=== PATIENT | male | born 1985 | race Two or more races ===

== ENCOUNTER 2021-05-02 21:28 | Emergency (ER) | payer MEDICAID, OTHER ==
[~2021-05-02] VITALS: Ht 172.7 cm; Wt 88.5 kg
[2021-05-02 21:28] VITALS: BP 147/98
== END 2021-05-02 23:28 | disposition home or self-care (01) ==
LOC: ER 21:41
DX: S63.501A Unspecified sprain of right wrist, initial encounter (principal); V80.010A Animal-rider injured by fall from or being thrown from horse in noncollision accident, initial encounter; Y93.89 Activity, other specified; Y92.89 Other specified places as the place of occurrence of the external cause; Y99.8 Other external cause status
CPT/HCPCS: 29125; 73110

== ENCOUNTER 2021-05-07 23:40 | Emergency (ER) | payer MEDICAID ==
[~2021-05-07] VITALS: Ht 172.7 cm; Wt 88.5 kg
[2021-05-08] MEDS ORDERED: SODIUM CHLORIDE 0.9% 1,000 ML IV ONE (01:00)
[2021-05-08] MEDS ORDERED: levETIRAcetam 500 MG/5ML INJ IV ONE (01:07)
[2021-05-08 01:42] LABS: Eosinophils # (auto) 0 10 ^3/uL (0-0.8); Eosinophils % (auto) 0.2 % (0.0-7.0); Mean Corpuscular Hemoglobin 33.5 pg (28.0-32.0); White Blood Cell 8.3 10^3/uL (4.4-10.8)
[2021-05-08 01:45] LABS: Basophils # (auto) 0 10 ^3/uL (0-0.2); Basophils % (auto) 0.1 % (0.0-2.0); Hematocrit 47.5 % (41.0-53.0); Hemoglobin 17.3 g/dL (13.5-17.5); Lymphocytes # (auto) 0.9 10 ^3/uL (0.4-5.4); Lymphocytes % (auto) 10.7 % (10.0-50.0); Mean Corpuscular Volume 91.7 fL (80.0-100.0); Monocytes # (auto) 0.5 10 ^3/uL (0-1.3); Monocytes % (auto) 6.3 % (0.0-12.0); Neutrophils # (auto) 6.8 10 ^3/uL (1.6-8.6); Neutrophils % (auto) 82.7 % (37.0-80.0); Nucleated Red Blood Cells % 0.1 %; Red Blood Cells 5.18 10^6/uL (4.5-5.90); Red Cell Distribution Width 12.6 % (11.8-14.3)
[2021-05-08 01:56] LABS: INR 0.99 (0.9-1.15)
[2021-05-08 01:57] LABS: Albumin 4.1 g/dL (3.4-5.0); Calcium 8.2 mg/dL (8.5-10.1); Magnesium 2.2 mg/dL (1.6-2.6); Potassium 3.5 mmol/L (3.5-5.1)
[2021-05-08 01:59] LABS: BUN/Creatinine Ratio 23.2; Lactic Acid w/Reflex 2.5 mmol/L (0.4-2.0)
[2021-05-08 02:01] LABS: Bilirubin, Total 0.6 mg/dL (0.2-1.0)
[2021-05-08 02:13] LABS: Mean Corpuscular Hgb Conc. 36.5 g/dL (32.0-36.0)
[2021-05-08 03:00] VITALS: BP 119/71
[2021-05-08] MEDS ORDERED: ACETAMINOPHEN 500 MG TAB PO ONE (03:00)
[2021-05-08 03:57] LABS: Urine Bacteria NONE SEEN /hpf (None Seen); Urine Blood Negative /uL (Negative); Urine Mucus FEW (None Seen); Urine Specific Gravity 1.027 (1.001-1.035); Urine WBC 4 /hpf (0 - 3)
== END 2021-05-08 04:40 | disposition home or self-care (01) ==
LOC: EDUNIT# 23:40 → EDBD 23:40 → ER 23:40
DX: G40.909 Epilepsy, unspecified, not intractable, without status epilepticus (principal); Z91.14 Patient's other noncompliance with medication regimen
CPT/HCPCS: 36415; 71045; 80053; 81001; 82550; 83605; 83735; 85025; 85049; 85610; 96365; 96366; 99284; J1953; J7060

== ENCOUNTER 2025-06-13 11:09 | Inpatient (IN) | payer MEDICAID ==
[~2025-06-13] VITALS: Ht 170.2 cm; Wt 84.4 kg
--- NOTE | 2025-06-13 11:21 | ED.PDOC ---
History of Present Illness HPI Comments 39-year-old male brought by paramedics because of a seizure episode witnessed by his son. Seizure was approximately 40 seconds. He had another seizure in route in the ambulance lasting about 20 seconds. He was given Versed in route. He did vomit 3 times prior to arrival to the ER. Patient does have a history of seizures for which she takes Keppra. He also has a history of hypertension diabetes. Blood sugar 193 on arrival. He is postictal. Unable to get any answers from the patient. Chief Complaint: Seizure Time Seen by MD: 11:11 Reviewed Notes: Nurses Notes, Medications, Allergies Allergies: Coded Allergies: NO KNOWN ALLERGIES (Unverified , 05/08/21) Information Source: Emergency Med Personnel Mode of Arrival: EMS Severity: Moderate Timing: Hours Duration: Since onset Past Medical History PAST MEDICAL HISTORY: DM, HTN, Seizures Surgical History: Denies all surgeries Family History Family History: Reviewed,noncontributory to illness Social History Smoker: Non-Smoker Alcohol: Denies ETOH Use Drugs: Denies Drug Use Lives In: Home Neurological: reports: seizure Unable to Obtain due to: Altered Mental Status Physical Exam General Appearance: Severe Distress HEENT: Normal ENT Inspection, Pharynx Normal, TMs Normal Neck: Full Range of Motion, Non-Tender, Normal, Normal Inspection Respiratory: Chest Non-Tender, Lungs Clear, No Accessory Muscle Use, No Respiratory Distress, Normal Breath Sounds Cardiovascular: No Edema, No JVD, No Murmur, No Gallop, Normal Peripheral Pulses, Regular Rate/Rhythm Breast Exam: Deferred Gastrointestinal: No Organomegaly, Non Tender, No Pulsatile Mass, Normal Bowel Sounds, Soft Genitalia: Deferred Pelvic: Deferred Rectal: Deferred Extremities: No calf tenderness, Normal capillary refill, Normal inspection, Normal range of motion, Non-tender, No pedal edema Musculoskeletal : Apperance: Normal Neurologic: Disoriented Cerebellar Function: NOT DONE Reflexes: NOT DONE Skin: Wounds (Tongue) Peripheral Pulses: 3+ Radial (R), 3+ Radial (L) Lymphatic: No Adenopathy Was a procedure done? Was a procedure done?: No Differential Dx Considerations may include: Seizure Electrolyte imbalance X-Ray, Labs, Meds, VS Vital Signs Date Time Temp Pulse Resp B/P (MAP) Pulse Ox O2 Delivery O2 Flow Rate FiO2 06/13/25 11:24 96.8 115 17 128/99 (109) 100 96.8 06/13/25 11:12 98.9 117 16 148/75 97 98.9 Lab Test 06/13/25 11:28 Range/Units White Blood Count 9.3 4.4-10.8 10^3/uL Red Blood Count 5.82 4.5-5.90 10^6/uL Hemoglobin 19.1 H 13.5-17.5 g/dL Hematocrit 54.3 H 41.0-53.0 % Mean Corpuscular Volume 93.3 80.0-100.0 fL Mean Corpuscular Hemoglobin 32.7 H 28.0-32.0 pg Mean Corpuscular Hemoglobin Concent 35.1 32.0-36.0 g/dL Red Cell Distribution Width 12.6 11.8-14.3 % Platelet Count 220 140-450 10^3/uL Mean Platelet Volume 6.6 L 6.9-10.8 fL Neutrophils (%) (Auto) 72.9 37.0-80.0 % Lymphocytes (%) (Auto) 22.6 10.0-50.0 % Monocytes (%) (Auto) 4.0 0.0-12.0 % Eosinophils (%) (Auto) 0.1 0.0-7.0 % Basophils (%) (Auto) 0.4 0.0-2.0 % Neutrophils # (Auto) 6.8 1.6-8.6 10 ^3/uL Lymphocytes # (Auto) 2.1 0.4-5.4 10 ^3/uL Monocytes # (Auto) 0.4 0-1.3 10 ^3/uL Eosinophils # (Auto) 0 0-0.8 10 ^3/uL Basophils # (Auto) 0 0-0.2 10 ^3/uL Nucleated Red Blood Cells 0.7 % Sodium Level 140 136-145 mmol/L Potassium Level 3.5 3.5-5.1 mmol/L Chloride Level 104 98-107 mmol/L Carbon Dioxide Level 17 L 20-31 mmol/L Anion Gap 19 H 5-15 Blood Urea Nitrogen 12 9-23 mg/dL Creatinine 1.02 0.700-1.30 mg/dL Glomerular Filtration Rate Calc 95 >90 mL/min BUN/Creatinine Ratio 11.8 10.0-20.0 Serum Glucose 210 H 74-106 mg/dL Calcium Level 9.1 8.7-10.4 mg/dL Current Medications Medications (Trade) Dose Ordered Sig/Daniele Route Start Time Stop Time Status Last Admin Sodium Chloride 1,000 ml @ 1,000 mls/hr Q1H ONCE IV 06/13/25 11:30 06/13/25 12:29 DC 06/13/25 11:54 Sodium Chloride 1,000 ml @ 150 mls/hr Q6H40M ONCE IV 06/13/25 11:30 06/13/25 18:09 06/13/25 11:54 Lorazepam (Ativan Inj) 1 mg ONCE ONCE IV 06/13/25 11:30 06/13/25 11:31 DC 06/13/25 11:54 Levetiracetam 100 ml @ 400 mls/hr ONCE ONCE IV 06/13/25 11:30 06/13/25 11:44 DC 06/13/25 11:54 Time of 1ST Reevaluation: 11:20 Reevaluation 1ST: Unchanged Patient Education/Counseling: Other (Altered) Family Education/Counseling: Other (Son knows explained to about his condition) SEPSIS Sepsis Screen Physician Orders Chest Portable (06/13/25 11:21) Urinalysis (06/13/25 11:21) Sodium Chloride 0.9% (06/13/25 11:30) Head Without Contrast (06/13/25 11:21) Vital Signs Date Time Temp Pulse Resp B/P (MAP) Pulse Ox O2 Delivery O2 Flow Rate FiO2 06/13/25 11:24 96.8 115 17 128/99 (109) 100 96.8 06/13/25 11:12 98.9 117 16 148/75 97 98.9 Laboratory Tests Test 06/13/25 11:28 White Blood Count 9.3 10^3/uL (4.4-10.8) Medications Medications Dose Ordered Sig/Daniele Route Start Time Stop Time Status Last Admin Dose Admin Levetiracetam 100 ml @ 400 mls/hr ONCE ONCE IV 06/13/25 11:30 06/13/25 11:44 DC 06/13/25 11:54 Lorazepam 1 mg ONCE ONCE IV 06/13/25 11:30 06/13/25 11:31 DC 06/13/25 11:54 Sodium Chloride 1,000 ml @ 150 mls/hr Q6H40M ONCE IV 06/13/25 11:30 06/13/25 18:09 06/13/25 11:54 Sodium Chloride 1,000 ml @ 1,000 mls/hr Q1H ONCE IV 06/13/25 11:30 06/13/25 12:29 DC 06/13/25 11:54 Departure 1 Departure Time of Disposition: 11:20 Impression: Primary Impression: Metabolic encephalopathy Additional Impression: Seizure disorder Disposition: ADMITTED INPATIENT Admit to: Med Surg Condition: Guarded Critical Care Note Critical Care Time?: Yes (90 min-critical care time only) Stability Stability form required: No Heart Score Heart Score: Heart Score Response (Comments) Value History N/A 0 EKG N/A 0 Age N/A 0 Risk Factors N/A 0 Troponin N/A 0 Total 0 OMEGA LONG MD Jun 13, 2025 11:21
[2025-06-13 11:45] LABS: Hematocrit 54.3 % (41.0-53.0); Hemoglobin 19.1 g/dL (13.5-17.5); Mean Corpuscular Hemoglobin 32.7 pg (28.0-32.0); Mean Corpuscular Volume 93.3 fL (80.0-100.0); Nucleated Red Blood Cells % 0.7 %
[2025-06-13] MEDS: SODIUM CHLORIDE 0.9% 1,000 ML IV ONE ×2 (11:54)
[2025-06-13] MEDS: LORazepam 2MG/ML-1ML VIAL IV ONE (11:54)
[2025-06-13] MEDS: levETIRAcetam 1000 mg/100ml 100 ML IV ONE (11:54)
[2025-06-13 11:55] LABS: Chloride 104 mmol/L (98-107); Potassium 3.5 mmol/L (3.5-5.1); Sodium 140 mmol/L (136-145)
[2025-06-13 11:56] LABS: Anion Gap 19 (5-15); Calcium 9.1 mg/dL (8.7-10.4)
[2025-06-13 12:01] LABS: BUN/Creatinine Ratio 11.8 (10.0-20.0); Blood Urea Nitrogen 12 mg/dL (9-23); Carbon Dioxide 17 mmol/L (20-31); Glucose 210 mg/dL (74-106)
--- NOTE | 2025-06-13 12:17 | DVH ---
CHEST RADIOGRAPH Indication: sob Technique: XY CHEST PORTABLE Comparison: None FINDINGS: The cardiac silhouette is unremarkable. The lungs demonstrate no pulmonary airspace consolidation. Th e pulmonary vasculature is unremarkable. There is no pleural effusion. There is no pneumothorax. IMPRESSION: No pulmonary airspace consolidation.
--- NOTE | 2025-06-13 12:17 | DVH ---
EXAM: CT HEAD WITHOUT CONTRAST INDICATION: altered TECHNIQUE: CT of the head without intravenous contrast. Radiation Dose : 1. Head: CT Dose: CTDI volume is 63.11 mGy. Dose-length product is 1.61 mGy*cm The dose indicators for CT are the volume Computed Tomography (CT) Dose Index (CTDIvol) and the Dose Length Product (DLP), and are measured in units of mGy and mGy-cm, respectively. These indicators are not patient dose, but values generated from the CT scanner acquisition factors. The report includes radiation exposure data for exposures received during this examination. COMPARISON: None FINDINGS: There is no evidence of acute intracranial hemorrhage, extra-axial collection, mass effect, midline s hift, herniation or hydrocephalus. The ventricles, sulci and cisterns are age appropriate. The price-white differentiation is intact. Patchy periventricular and subcortical white matter hypoattenuation is nonspecific but may be related to small vessel ischemic disease. The visualized paranasal sinuses and mastoid air cells are clear. The surrounding soft tissues and osseous structures are unremarkable. IMPRESSION: 1. No acute intracranial abnormality. Radiation optimization: All CT scans at this facility use at least one of these dose optimization delvis hniques: automated exposure control mA and/or kV adjustment per patient size (includes targeted exam s where dose is matched to clinical indication) or iterative reconstruction.
[2025-06-13 13:14] VITALS: PULSE 103; RESP 16; O2SAT 95
[2025-06-13] MEDS ORDERED: DEXTROSE (50%) 50ML SYRG IV PRN (19:30)
[2025-06-13] MEDS ORDERED: ONDANSETRON HCL 4 MG/2 ML VIAL IV PRN (19:30)
[2025-06-13] MEDS: ACETAMINOPHEN 325 MG TAB PO PRN (20:24)
[2025-06-13 21:20] VITALS: PULSE 86; RESP 12; O2SAT 96
[2025-06-13] MEDS ORDERED: levETIRAcetam 500 MG TAB PO SCH (22:00)
[2025-06-13 23:00] VITALS: BP_SYST 84; PULSE 87; RESP 19; TEMP 97.9; O2SAT 93
--- NOTE | 2025-06-13 23:05 | DVHHP2 ---
History of Present Illness Reason for Visit: Seizure History of Present Illness 39-year-old male presents for evaluation of seizure. Patient had a witnessed seizure lasting approximately 30 seconds witnessed by his son. Patient reports driving today to see a job, the last thing he remembers is pulling to the side of the road and waking up in the hospital. No oral trauma or incontinence. Patient reports being compliant with his antiseizure medications and has followups with Neurology in [place]. Past Medical History Hypertension, diabetes mellitus, seizures Past Surgical History Denies Family History Noncontributory Smoke: No ALCOHOL: none Drugs: None Lives: with Family Review of Systems Review of Systems Review of systems are currently negative otherwise addressed in HPI. Allergies: Coded Allergies: NO KNOWN ALLERGIES (Unverified , 05/08/21) Medications Current Medications Medications Dose Ordered Sig/Daniele Route Start Time Stop Time Status Last Admin Dose Admin Levetiracetam 500 mg BID PO 06/13/25 22:00 Phenytoin Sodium 200 mg BID PO 06/13/25 22:00 Diagnostic Test (Pha) 1 strip ACHS 06/13/25 22:00 Insulin Human Regular ACHS SC 06/13/25 22:00 Dextrose 50 ml UD PRN IV 06/13/25 19:30 Ondansetron HCl 4 mg Q4HP PRN IV 06/13/25 19:30 Acetaminophen 650 mg Q6HP PRN PO 06/13/25 19:30 06/13/25 20:24 650 MG Exam Vital Signs Vital Signs Date Time Temp Pulse Resp B/P (MAP) Pulse Ox O2 Delivery O2 Flow Rate FiO2 06/13/25 21:20 86 12 96 Room Air* 0 21 06/13/25 20:00 97.9 129/82 (98) 97.9 Exam Gen: 39-year-old male in mild distress Skin: Warm, dry, normal color and texture, no rash. HEENT: Normocephalic atraumatic, mucous membranes moist and pink. Neck: Cervical and supraclavicular nodes normal without enlargement, trachea is midline, thyroid gland is normal without masses. Pulmonary: Clear to auscultation and percussion bilaterally. Cardiac: Regular rate and rhythm. No murmur Abdomen: Soft, nontender, nondistended, bowel sounds present all 4 quadrants, no guarding, no rigidity, no organomegaly. Extremities: No cyanosis, clubbing, no edema Neuro: Cranial nerves II through XII grossly intact, lethargic, no focal motor d eficits Labs/Xrays ORDERING PHYSICIAN: OMEGA LONG MD PROCEDURE(s): CXRP - CHEST PORTABLE REASON: sob ORDER NUMBER(s): [id number], ACCESSION NUMBER(s): [id number] CHEST RADIOGRAPH Indication: sob Technique: XY CHEST PORTABLE Comparison: None FINDINGS: The cardiac silhouette is unremarkable. The lungs demonstrate no pulmonary airspace consolidation. The pulmonary vasculature is unremarkable. There is no pleural effusion. There is no pneumothorax. IMPRESSION: No pulmonary airspace consolidation. RING PHYSICIAN: OMEGA LONG MD PROCEDURE(s): HWOCT - HEAD WITHOUT CONTRAST REASON: altered ORDER NUMBER(s): [id number], ACCESSION NUMBER(s): [id number] EXAM: CT HEAD WITHOUT CONTRAST INDICATION: altered TECHNIQUE: CT of the head without intravenous contrast. Radiation Dose : 1. Head: CT Dose: CTDI volume is 63.11 mGy. Dose-length product is 1.61 mGy*cm The dose indicators for CT are the volume Computed Tomography (CT) Dose Index (CTDIvol) and the Dose Length Product (DLP), and are measured in units of mGy and mGy-cm, respectively. These indicators are not patient dose, but values generated from the CT scanner acquisition factors. The report includes radiation exposure data for exposures received during this examination. COMPARISON: None FINDINGS: There is no evidence of acute intracranial hemorrhage, extra-axial collection, mass effect, midline shift, herniation or hydrocephalus. The ventricles, sulci and cisterns are age appropriate. The price-white differentiation is intact. Patchy periventricular and subcortical white matter hypoattenuation is nonspecific but may be related to small vessel ischemic disease. The visualized paranasal sinuses and mastoid air cells are clear. The surrounding soft tissues and osseous structures are unremarkable. IMPRESSION: 1. No acute intracranial abnormality. Radiation optimization: All CT scans at this facility use at least one of these dose optimization techniques: automated exposure control mA and/or kV adjustment per patient size (includes targeted exams where dose is matched to clinical indication) or iterative reconstruction. Labs Test 06/13/25 19:52 06/13/25 11:28 Range/Units Phenytoin (Dilantin) Level < 2.0 L 10-20 ug/mL White Blood Count 9.3 4.4-10.8 10^3/uL Red Blood Count 5.82 4.5-5.90 10^6/uL Hemoglobin 19.1 H 13.5-17.5 g/dL Hematocrit 54.3 H 41.0-53.0 % Mean Corpuscular Volume 93.3 80.0-100.0 fL Mean Corpuscular Hemoglobin 32.7 H 28.0-32.0 pg Mean Corpuscular Hemoglobin Concent 35.1 32.0-36.0 g/dL Red Cell Distribution Width 12.6 11.8-14.3 % Platelet Count 220 140-450 10^3/uL Mean Platelet Volume 6.6 L 6.9-10.8 fL Neutrophils (%) (Auto) 72.9 37.0-80.0 % Lymphocytes (%) (Auto) 22.6 10.0-50.0 % Monocytes (%) (Auto) 4.0 0.0-12.0 % Eosinophils (%) (Auto) 0.1 0.0-7.0 % Basophils (%) (Auto) 0.4 0.0-2.0 % Neutrophils # (Auto) 6.8 1.6-8.6 10 ^3/uL Lymphocytes # (Auto) 2.1 0.4-5.4 10 ^3/uL Monocytes # (Auto) 0.4 0-1.3 10 ^3/uL Eosinophils # (Auto) 0 0-0.8 10 ^3/uL Basophils # (Auto) 0 0-0.2 10 ^3/uL Nucleated Red Blood Cells 0.7 % Sodium Level 140 136-145 mmol/L Potassium Level 3.5 3.5-5.1 mmol/L Chloride Level 104 98-107 mmol/L Carbon Dioxide Level 17 L 20-31 mmol/L Anion Gap 19 H 5-15 Blood Urea Nitrogen 12 9-23 mg/dL Creatinine 1.02 0.700-1.30 mg/dL Glomerular Filtration Rate Calc 95 >90 mL/min BUN/Creatinine Ratio 11.8 10.0-20.0 Serum Glucose 210 H 74-106 mg/dL Calcium Level 9.1 8.7-10.4 mg/dL SEPSIS Sepsis Screen Date sepsis recognized/suspect: Jun 13, 2025 Time Sepsis recognized/suspect: 1315 Recent Procedure: No On Antibiotic Therapy: No Respiratory Rate >20: No Heart Rate >90: No Temp<36 C (96.8 F) or >38.3 C: No SBP <90 or MAP <65 mmHG: No New Acute Mental Status Change: No Is the patient on CPAP, BIPAP,: No Physician Orders Seizure Precautions In Place (06/13/25 19:20) * Neurology Consult (06/13/25 19:20) Levetiracetam Tablet (Keppra Tablet) (06/13/25 22:00) Phenytoin Capsule (Dilantin Capsule) (06/13/25 22:00) Basic Metabolic Panel (06/14/25 04:00) Consistent Carb(Ccho)Diabetes (06/14/25 Breakfast) Glucose Blood (Accu-Chek Comfort Curve T (06/13/25 22:00) Insulin R (Human) (Insulin R) (06/13/25 22:00) Dextrose 50% Syringe (06/13/25 19:30) Ondansetron Hcl (Zofran) (06/13/25 19:30) Condition: Stable (06/13/25 19:20) Acetaminophen Tablet (Tylenol Tablet) (06/13/25 19:30) Bedrest With Bathroom Privileg (06/13/25 19:20) Admit (06/13/25 19:50) Brain Head Wo Contrast (06/13/25 22:58) Vital Signs Date Time Temp Pulse Resp B/P (MAP) Pulse Ox O2 Delivery O2 Flow Rate FiO2 06/13/25 21:20 86 12 96 Room Air* 0 21 06/13/25 20:00 97.9 91 17 129/82 (98) 99 97.9 06/13/25 16:00 96.8 94 17 109/72 (84) 100 96.8 Laboratory Tests Test 06/13/25 11:28 White Blood Count 9.3 10^3/uL (4.4-10.8) Medications Medications Dose Ordered Sig/Daniele Route Start Time Stop Time Status Last Admin Dose Admin Acetaminophen 650 mg Q6HP PRN PO 06/13/25 19:30 06/13/25 20:24 650 MG Levetiracetam 100 ml @ 400 mls/hr ONCE ONCE IV 06/13/25 11:30 06/13/25 11:44 DC 06/13/25 11:54 400 MLS/HR Lorazepam 1 mg ONCE ONCE IV 06/13/25 11:30 06/13/25 11:31 DC 06/13/25 11:54 1 MG Sodium Chloride 1,000 ml @ 150 mls/hr Q6H40M ONCE IV 06/13/25 11:30 06/13/25 18:09 DC 06/13/25 11:54 150 MLS/HR Sodium Chloride 1,000 ml @ 1,000 mls/hr Q1H ONCE IV 06/13/25 11:30 06/13/25 12:29 DC 06/13/25 11:54 1,000 MLS/HR Assessment/Plan Assessment/Plan Assessment Breakthrough seizure Diabetes mellitus Hypertension Plan Admit the patient to [facility] to the hospitalist Nephrology consultation MRI of the brain pending Resume home medications Seizure precautions in place Continue treatment per orders. Plan discussed with: Other My Orders Orders - ARI BROOKS AGALM Procedure Category Date Status Time Seizure Precautions LADI 06/13/[address] 19:20 * Neurology Consult CONS 06/13/25 Transmitted 19:20 Levetiracetam Tablet PHA 06/13/25 In Process (Keppra Tablet) 22:00 Phenytoin Capsule PHA 06/13/25 In Process (Dilantin Capsule) 22:00 Basic Metabolic Panel LAB 06/14/25 Verified 04:00 Consistent DIET 06/14/25 Transmitted Carb(Ccho)Diabetes Breakfast Glucose Blood PHA 06/13/25 In Process (Accu-Chek Comfort 22:00 Insulin R (Human) PHA 06/13/25 In Process (Insulin R) 22:00 Dextrose 50% Syringe PHA 06/13/25 In Process 19:30 Ondansetron Hcl PHA 06/13/25 In Process (Zofran) 19:30 Condition: Stable LADI 06/13/25 In Process 19:20 Acetaminophen Tablet PHA 06/13/25 In Process (Tylenol Tablet) 19:30 Bedrest With Bathroom LADI 06/13/25 In Process Privileg 19:20 Admit ADMIT 06/13/25 Transmitted 19:50 Brain Head Wo Contrast MRI 06/13/25 Logged 22:58 Date of Service: Jun 13, 2025 Billing Provider: ARI BROOKS Common Visit Codes: [id number] INP/OBS CARE (HIGH) ARI BROOKS Jun 13, 2025 23:05
[2025-06-13] MEDS: PHENYTOIN SODIUM 100 MG CAP PO SCH (23:24)
[2025-06-13] MEDS: InsuLIN REG 1unit/0.01ml Soln (100units/ml) SC SCH (23:24)
[2025-06-13] MEDS: ACCU-CHEK COMFORT CURVE STRIP VI SCH (23:25)
[2025-06-14] VITALS (8 sets, daily range): BP systolic 108–129; BP diastolic 69–85; PULSE 70–82; RESP 13–18; TEMP 98.3–98.5; O2SAT 92–96
[2025-06-14] MEDS: levETIRAcetam 500 MG TAB PO SCH (00:35)
[2025-06-14 06:26] LABS: Chloride 104 mmol/L (98-107); Potassium 3.9 mmol/L (3.5-5.1); Sodium 141 mmol/L (136-145)
[2025-06-14 06:27] LABS: Anion Gap 9 (5-15); Calcium 8.8 mg/dL (8.7-10.4); Carbon Dioxide 28 mmol/L (20-31)
[2025-06-14 06:33] LABS: Glucose 99 mg/dL (74-106)
[2025-06-14 06:47] LABS: BUN/Creatinine Ratio 12.3 (10.0-20.0)
[2025-06-14 06:48] LABS: Blood Urea Nitrogen 9 mg/dL (9-23)
[2025-06-14 08:28] LABS: Urine Protein, UAD Negative (Negative)
--- NOTE | 2025-06-14 09:22 | DVHINCON2 ---
Date of service: Jun 14, 2025 Referring Physician Lopez Reason for Consultation Breakthrough seizure History of Present Illness Mr. Alberts is a 39 years old right-handed gentleman with a history of hypertension, diabetes, obesity, he was brought to the [facility] on 06/13/2025 with a chief complaint of seizure activity. At this time, he is alert and fully oriented, he and his provided the following history On 06/13/2025, when he was driving, he developed nausea and other abdominal discomfort, he pulls over and then next memory was waking up confused, then the next time he woke up was in the [facility] ER, with normal mentation and a small biting to the right tongue. Presumably he had a convulsive seizure. The last time he had seizure was in 11/2024 He has seizure disorder since age of 16, in that he has periodic event started with discomfort in the stump, nausea, and then followed by loss of consciousness, generalized shaking. He has seizures infrequently, the one before the 11/2024 was in 2019. He sees a neurologist, he is on Keppra ? mg daily (according to the record, 500 mg three tablets daily), Dilantin three capsule daily (according to our record, Dilantin capsule 100 capsule two capsules twice daily), and he reports good compliance He reports that he is allowed by his talked to drive, but I have advised against drive until he is cleared Dilantin, 06/13/2025: <2 Urinalysis, 06/13/2025, WBC: 4, urine leukocyte esterase: Negative WBC/HB/PLT/MCV HCT, 06/13/2025: 9.3/19.1/220/93.3/54.3 HCO3, 06/13/2025: 17, 06/14/2025: 28 CT head 06/13/2025: No acute intracranial abnormality Past Medical History Hypertension, diabetes, seizure Past Surgical History No surgeries Family History No major medical problems Social History He denies history of tobacco smoking, drug or alcohol abuse Allergies: Coded Allergies: NO KNOWN ALLERGIES (Unverified , 05/08/21) Current Medications Current Medications Medications (Trade) Dose Ordered Sig/Daniele Route PRN Reason Start Time Stop Time Status Last Admin Levetiracetam (Keppra Tablet) 500 mg BID PO 06/13/25 22:00 06/13/25 23:01 DC Phenytoin Sodium (Dilantin Capsule) 200 mg BID PO 06/13/25 22:00 06/13/25 23:24 Diagnostic Test (Pha) (Accu-Chek Comfort Curve T) 1 strip ACHS 06/13/25 22:00 06/14/25 06:18 Insulin Human Regular (InsuLIN R) ACHS SC 06/13/25 22:00 06/13/25 23:24 Dextrose 50 ml UD PRN IV Blood Sugar LESS THAN 60 06/13/25 19:30 Ondansetron HCl (Zofran) 4 mg Q4HP PRN IV NAUSEA / VOMITING 06/13/25 19:30 Acetaminophen (Tylenol Tablet) 650 mg Q6HP PRN PO PAIN SCALE 1-3 OR TEMP>100.4 06/13/25 19:30 06/13/25 20:24 Levetiracetam (Keppra Tablet) 1,500 mg DAILY PO 06/13/25 23:00 06/14/25 00:35 Folic Acid 1 mg DAILY PO 06/14/25 10:00 Review of Systems As above, the other systems are negative Vital Signs Vital Signs Date Time Temp Pulse Resp B/P (MAP) Pulse Ox O2 Delivery O2 Flow Rate FiO2 06/14/25 09:00 71 14 95 Room Air* 0 21 06/14/25 07:30 97.5 101/57 (72) 97.5 Physical Exam GENERAL EXAM: General: the patient is well developed and nourished. No acute distress. HEENT: Normocephalic, neck is supple, no carotid bruits. No mass. RESPIRATORY: Normal respiratory effort with symmetrical lung expansion. Lungs clear to auscultation. CARDIOVASCULAR: Regular rate and rhythm with no murmurs. S1, S2. ABDOMEN: Soft, nontender, normal bowel sound NEUROLOGICAL: MENTAL STATUS: Awake and alert. Oriented to person, place, time and general circumstances. Able to give personal history. SPEECH, LANGUAGE, HIGHER CORTICAL FUNCTION: no aphasia or dysathria. CRANIAL NERVES: #2: Intact visual shelton to confrontation. The optic discs were sharp. #3,4,6: Pupils are equal, round and reactive. EOMs full and conjugate. No nystagmus. #5: Facial sensation intact in all three divisions bilaterally. Mandibular strength intact. #7: Facial muscles symmetrical and strength intact. #8: Hearing grossly normal to voice. #9,10: Uvula and soft palate rise in the midline. Swallow and voice are normal. #11: Trapezius and sternomastoid strength intact bilaterally. #12: Tongue midline. No fasciculations or atrophy. SENSATION: Sensation to touch and pinprick is normal. MOTOR: Normal tone in the upper and lower extremity. Normal muscle bulk. No fasciculations. No abnormal movements or posturing. Muscle strength of the major groups in the upper extremities is 5/5. Muscle strength of the major groups in the lower extremities is 5/5. REFLEXES: Deep tendon reflexes are symmetrical. No pathological reflexes. CEREBELLAR/COORDINATION: Finger to nose and heel to waters are normal bilaterally. GAIT/STATION: deferred. Labs/Diagnostic Data Labs Test 06/14/25 06:02 06/14/25 05:43 06/13/25 19:52 06/13/25 11:28 Range/Units POC Glucose 109 H 70-106 mg/dl Sodium Level 141 136-145 mmol/L Potassium Level 3.9 3.5-5.1 mmol/L Chloride Level 104 98-107 mmol/L Carbon Dioxide Level 28 # 20-31 mmol/L Anion Gap 9 5-15 Blood Urea Nitrogen 9 9-23 mg/dL Creatinine 0.73 0.700-1.30 mg/dL Glomerular Filtration Rate Calc 117 >90 mL/min BUN/Creatinine Ratio 12.3 10.0-20.0 Serum Glucose 99 # 74-106 mg/dL Calcium Level 8.8 8.7-10.4 mg/dL Phenytoin (Dilantin) Level < 2.0 L 10-20 ug/mL White Blood Count 9.3 4.4-10.8 10^3/uL Red Blood Count 5.82 4.5-5.90 10^6/uL Hemoglobin 19.1 H 13.5-17.5 g/dL Hematocrit 54.3 H 41.0-53.0 % Mean Corpuscular Volume 93.3 80.0-100.0 fL Mean Corpuscular Hemoglobin 32.7 H 28.0-32.0 pg Mean Corpuscular Hemoglobin Concent 35.1 32.0-36.0 g/dL Red Cell Distribution Width 12.6 11.8-14.3 % Platelet Count 220 140-450 10^3/uL Mean Platelet Volume 6.6 L 6.9-10.8 fL Neutrophils (%) (Auto) 72.9 37.0-80.0 % Lymphocytes (%) (Auto) 22.6 10.0-50.0 % Monocytes (%) (Auto) 4.0 0.0-12.0 % Eosinophils (%) (Auto) 0.1 0.0-7.0 % Basophils (%) (Auto) 0.4 0.0-2.0 % Neutrophils # (Auto) 6.8 1.6-8.6 10 ^3/uL Lymphocytes # (Auto) 2.1 0.4-5.4 10 ^3/uL Monocytes # (Auto) 0.4 0-1.3 10 ^3/uL Eosinophils # (Auto) 0 0-0.8 10 ^3/uL Basophils # (Auto) 0 0-0.2 10 ^3/uL Nucleated Red Blood Cells 0.7 % Test 06/13/25 08:08 Range/Units Urine Color Yellow Yellow Urine Clarity Clear Clear Urine pH 6.0 5.0-9.0 Urine Specific [place] 1.022 1.001-1.035 Urine Protein Negative Negative Urine Ketones Negative Negative Urine Blood Negative Negative /uL Urine Nitrite Negative Negative Urine Bilirubin Negative Negative Urine Urobilinogen Normal Negative mg/dL Urine Leukocyte Esterase Negative Negative /uL Urine RBC 1 0 - 3 /hpf Urine Microscopic WBC 4 H 0-3 /HPF Urine Squamous Epithelial Cells Few <5 /hpf Urine Bacteria None seen None Seen /hpf Urine Mucus Few None Seen Urine Glucose Normal Normal mg/dL Assessment Grand mal seizure On therapeutic Dilantin level Poor compliance Plan/Recommendation Monitoring Supportive treatment Telemetry Dilantin level in the morning Dilantin 1000 mg IV x1 Dilantin 200 mg b.i.d. Keppra 750 mg b.i.d. Ativan for seizure breakthrough Triggers of seizures discussed, especially poor compliance, alcohol, sleep deprivation He has been advised not drive and he is cleared DMV report in the chart Follow up with his doctor and neurologist MICK on discharge Prognosis: Poor This medical document was created using an electronic medical record system with [employer] system. Although this document has been carefully reviewed, there may still be some phonetic and typographical errors. These areas are purely typographical due to imperfections of the software programs, and do not reflect any compromise in the patient's medical care. Plan discussed with: Patient, Spouse, Other KALEB MCCRACKEN MD Jun 14, 2025 09:22
[2025-06-14] MEDS: FOLIC ACID 1 MG TAB PO SCH (10:45)
[2025-06-14] MEDS: PHENYTOIN IV DILANTIN 1,000 MG in SODIUM CHL 0.9% 250 ML IV ONE (11:46)
--- NOTE | 2025-06-14 14:18 | DVH ---
EXAMINATION: MRI BRAIN HEAD WO CONTRAST INDICATION: Breakthrough seizure COMPARISON: CT HEAD WITHOUT CONTRAST on DOS: 06/13/25 TECHNIQUE: Multiplanar, multisequence magnetic resonance imaging of the brain was performed without the use of i ntravenous contrast. FINDINGS: Normal brain volume. There are nonspecific few scattered supratentorial T2/FLAIR hyperintense foci. No hemorrhages, masses, mass effect, midline shift, herniation or cytotoxic edema following large vas cular territory. No intra-axial or extra-axial fluid collections. No evidence of hydrocephalus. The b yesenia cisterns are patent. The vascular flow voids are maintained. Left cerebellar developmental venou s anomaly. The pituitary gland, sella parasellar regions unremarkable. The cerebellar tonsils are normal positio n. The cerebellum is unremarkable. The orbits and globes unremarkable. Mild mucoperiosteal thickening of the ethmoid air cells and maxil rebecca sinuses with left-sided maxillary tooth periapical cyst. Bilateral mastoids are clear. There are No worrisome calvarial lesions. IMPRESSION: No evidence of acute intracranial abnormalities. Left cerebellar developmental venous anomaly. Few scattered supratentorial T2/FLAIR hyperintense foci which may represent chronic small-vessel isch emic changes versus changes associated with migrainous state with demyelination thought less likely.
[2025-06-14] MEDS ORDERED: KEP500T PO (15:49)
[2025-06-14] MEDS ORDERED: PHEN1CAP38 PO (15:49)
--- NOTE | 2025-06-14 18:42 | DVHDSRES ---
Discharge Summary Date of Admission Resident Creating Document: BELKIS CHAN RESIDENT Jun 13, 2025 at 19:50 Date of Discharge: Jun 14, 2025 Admitting Diagnosis breakthrough seizure Labs/Diagnostic Data: Laboratory Results Test 06/14/25 06:02 06/14/25 05:43 06/13/25 19:52 06/13/25 11:28 POC Glucose 109 mg/dl (70-106) Sodium Level 141 mmol/L (136-145) Potassium Level 3.9 mmol/L (3.5-5.1) Chloride Level 104 mmol/L (98-107) Carbon Dioxide Level 28 mmol/L (20-31) Anion Gap 9 (5-15) Blood Urea Nitrogen 9 mg/dL (9-23) Creatinine 0.73 mg/dL (0.700-1.30) Glomerular Filtration Rate Calc 117 mL/min (>90) BUN/Creatinine Ratio 12.3 (10.0-20.0) Serum Glucose 99 mg/dL (74-106) Calcium Level 8.8 mg/dL (8.7-10.4) Phenytoin (Dilantin) Level < 2.0 ug/mL (10-20) White Blood Count 9.3 10^3/uL (4.4-10.8) Red Blood Count 5.82 10^6/uL (4.5-5.90) Hemoglobin 19.1 g/dL (13.5-17.5) Hematocrit 54.3 % (41.0-53.0) Mean Corpuscular Volume 93.3 fL (80.0-100.0) Mean Corpuscular Hemoglobin 32.7 pg (28.0-32.0) Mean Corpuscular Hemoglobin Concent 35.1 g/dL (32.0-36.0) Red Cell Distribution Width 12.6 % (11.8-14.3) Platelet Count 220 10^3/uL (140-450) Mean Platelet Volume 6.6 fL (6.9-10.8) Neutrophils (%) (Auto) 72.9 % (37.0-80.0) Lymphocytes (%) (Auto) 22.6 % (10.0-50.0) Monocytes (%) (Auto) 4.0 % (0.0-12.0) Eosinophils (%) (Auto) 0.1 % (0.0-7.0) Basophils (%) (Auto) 0.4 % (0.0-2.0) Neutrophils # (Auto) 6.8 10 ^3/uL (1.6-8.6) Lymphocytes # (Auto) 2.1 10 ^3/uL (0.4-5.4) Monocytes # (Auto) 0.4 10 ^3/uL (0-1.3) Eosinophils # (Auto) 0 10 ^3/uL (0-0.8) Basophils # (Auto) 0 10 ^3/uL (0-0.2) Nucleated Red Blood Cells 0.7 % Test 06/13/25 08:08 Urine Color Yellow (Yellow) Urine Clarity Clear (Clear) Urine pH 6.0 (5.0-9.0) Urine Specific [place] 1.022 (1.001-1.035) Urine Protein Negative (Negative) Urine Ketones Negative (Negative) Urine Blood Negative /uL (Negative) Urine Nitrite Negative (Negative) Urine Bilirubin Negative (Negative) Urine Urobilinogen Normal mg/dL (Negative) Urine Leukocyte Esterase Negative /uL (Negative) Urine RBC 1 /hpf (0 - 3) Urine Microscopic WBC 4 /HPF (0-3) Urine Squamous Epithelial Cells Few /hpf (<5) Urine Bacteria None seen /hpf (None Seen) Urine Mucus Few (None Seen) Urine Glucose Normal mg/dL (Normal) Other Laboratory Tests 06/14/25 05:43 06/13/25 11:28 Brief Hx & Hospital Course: 39-year-old male presented to the ED for evaluation of seizure. Patient had a witnessed seizure lasting approximately 30 seconds witnessed by his son. Patient was driving and he felt nauseous and pulled over to the side after which he had a seizure. He had another seizure on the way to the hospital in the ambulance. The patient complained of confusion and loss of consciousness after the seizure. He denies oral trauma and loss of bowel or bladder control after the seizure. Patient reports being compliant with his antiseizure medications but he mentions missing his dose of Dilantin for the last 2 3 days and has followups with Neurology in [place]. His last seizure was in November and before that he he has been seizure free for 5 years. She was given refills of his medication Dilantin and Topamax. All paperwork was done and his hospital course was uncomplicated. Past Medical History: seizures on dilantin and keppra Past Surgical History: Denies Family History: Noncontributory Smoke: No ALCOHOL: 1-2 beers once a week Drugs: None Lives: with Family Allergies: unknown Patient seen and examined at bedside. Patient is alert and oriented to time, place person and responding to all questions. Eyes: No Pain, No Vision change, No Conjunctivae inflammation, No Eyelid inflammation, No Other, No Redness ENT: No Ear pain, No Ear discharge, No Nose pain, No Nose discharge, No Nose congestion, No Mouth pain, No Mouth swelling, No Throat pain, No Throat swelling, No Other Cardiovascular: No Chest Pain, No Palpitations, No Orthopnea, No Paroxysmal No Dyspnea, No Edema, No Lt Headedness, No Other Respiratory: No Cough, No Dry, No Shortness of breath, No SOB with exertion, No Wheezing, No Hemoptysis, No Pleuritic Pain, No Sputum, No Other Gastrointestinal: No Nausea, No Vomiting, No Abdominal Pain, No Diarrhea, No Constipation, No Melena, No Hematochezia, No Other Genitourinary: No Dysuria, No Frequency, No Incontinence, No Hematuria, No Retention, No Other Condition at Discharge: Stable Final Diagnosis/Problems List breakthrough seizure medication non compliance (ran out of medication) Discharge Disposition: Home Discharge Instruct/Medications Diet: Regular Activity: No Restrictions, As Tolerated Follow Up/Referral: Please follow up in d/c clinic in 1-2 weeks Please fllow up with neurology in 1-2 weeks Medications: keppra 1500 mg daily dilantin 200 mg bid Scheduled Levetiracetam (Keppra Tablet), 1,500 MG PO DAILY Phenytoin Sodium (Dilantin Capsule), 200 MG PO BID Discharge Statement: "Patient was advised to return to the ER or call 911 if any headaches, dizziness, shortness of breath, chest pain, abdominal pain, bleeding, fevers, or worsening of medical condition. Patient was counseled about treatment plan, medications, possible side effects, patientverbalized understanding. All questions were answered to the best of my ability. This discharge took greater then 30 minutes in planning, reviewing documentation, counseling the patient, and discussing with other team members." ASSESSMENT ASSESSMENT Assessment breakthrough seizure medication non compliance (ran out of medication) BELKIS CHAN RESIDENT Jun 14, 2025 18:41
== END 2025-06-14 16:18 | disposition home or self-care (01) | DRG 53 ==
LOC: EDBD 11:09 → ER 11:09 → OVERFLOW 19:50 → CENTRAL 06-14 14:18
PROVIDERS: ADMIT Internal Medicine Geriatric Medicine; ATTEND Internal Medicine Geriatric Medicine
DX: G40.409 Other generalized epilepsy and epileptic syndromes, not intractable, without status epilepticus (principal); E11.9 Type 2 diabetes mellitus without complications; I10 Essential (primary) hypertension; E66.9 Obesity, unspecified; Z91.148 Patient's other noncompliance with medication regimen for other reason; Z79.899 Other long term (current) drug therapy; Z68.29 Body mass index [BMI] 29.0-29.9, adult
CPT/HCPCS: 36415; 70450; 70551; 71045; 80048; 80185; 81001; 82962; 85025; 96365; 96375; 99291; 99292; G0378; J1815